=== PATIENT | male | born 2000 | race Caucasian/White ===

== ENCOUNTER 2023-09-09 13:20 | Emergency (ER) | payer MEDICAID | END 2023-09-09 14:11 | disposition left against medical advice (07) | LOC: ED 13:20 | DX: Z53.21 Procedure and treatment not carried out due to patient leaving prior to being seen by health care provider (principal) ==

== ENCOUNTER 2023-09-09 18:17 | Emergency (ER) | payer MEDICAID ==
--- NOTE | 2023-09-09 18:46 | ED Physician Documentation ---
PD HPI MHE - Stated complaint Stated Complaint: SI - Chief complaint Chief Complaint: MHE - History obtained from History obtained from: Patient - Additional information Additional information: This is a 23-year-old male who presents after suicidal ideation. The patient has a longstanding history of depression, anxiety prior suicide attempts. He has been in inpatient mental health treatment on several occasions in the past. He presents today after encouragement from his director community health nursing at [facility]. The patient apparently was about to drink bleach in an effort to kill himself but he did not actually drink any bleach. He states he did want to kill himself and he has had thoughts of suicide quite frequently recently. It sounds as though he is being bullied or feels he has been made fun of by some other members of the [facility] in which she stays. The patient states he smokes marijuana occasionally, no other drug use, no alcohol use. He is not currently on any mental health medication though has been on various different medications in the past and has been out for at least a month. He denies any other concerns today, no fever or chills, no cough or URI symptoms, no GI or symptoms. He is accompanied by a director community health nursing today. Review of Systems Constitutional: reports: Reviewed and negative Eyes: reports: Reviewed and negative Ears: reports: Reviewed and negative Nose: reports: Reviewed and negative Throat: reports: Reviewed and negative Cardiac: reports: Reviewed and negative Respiratory: reports: Reviewed and negative GI: reports: Reviewed and negative : reports: Reviewed and negative Skin: reports: Reviewed and negative Musculoskeletal: reports: Reviewed and negative Neurologic: reports: Reviewed and negative Psychiatric: reports: Depressed, Suicidal, Anxiety. denies: Homicidal, Hallucinations, Delusions Endocrine: reports: Reviewed and negative PD PAST MEDICAL HISTORY - Past Medical History Past Medical History: Yes Cardiovascular: Other Respiratory: None Neuro: None Endocrine/Autoimmune: None GI: None : None HEENT: None Psych: Depression, Anxiety, Other Derm: None - Past Surgical History Past Surgical History: No - Present Medications Home Medications: Ambulatory Orders Medication Instructions Recorded Confirmed Benztropine Mesylate 1 mg PO DAILY 06/01/23 06/03/23 Quetiapine Fumarate [Seroquel] 50 mg PO DAILY 06/01/23 06/03/23 clonazePAM [Klonopin] 2 mg PO DAILY 06/01/23 06/03/23 haloperidoL [Haloperidol] 5 mg PO DAILY 06/01/23 06/03/23 - Allergies Allergies/Adverse Reactions: Allergies Allergy/AdvReac Type Severity Reaction Status Date / Time No Known Drug Allergies Allergy Verified 09/09/23 18:22 - Social History Does the pt smoke?: No Smoking Status: Former smoker Does the pt drink ETOH?: Yes Does the pt have substance abuse?: Yes Substance Use and Type: Marijuana - Immunizations Immunizations are current?: Yes PD ED PE NORMAL - Vitals Vital signs reviewed: Yes - General General: Alert and oriented X 3, No acute distress, Well developed/nourished - HEENT HEENT: Atraumatic, Moist mucous membranes - Cardiac Cardiac: RRR, No murmur - Respiratory Respiratory: No respiratory distress, Clear bilaterally - Abdomen Abdomen: Normal bowel sounds, Soft, Non tender, Non distended - Derm Derm: Normal color, Warm and dry, No rash, Other - Extremities Extremities: No deformity, No tenderness to palpate, Normal ROM s pain, No edema, No calf tenderness / cord - Neuro Neuro: Alert and oriented X 3 Eye Opening: Spontaneous Motor: Obeys Commands Verbal: Oriented GCS Score: 15 - Psych Psych: Normal mood, Normal affect Results - Vitals Vitals: Vital Signs - 24 hr 09/09/23 18:23 Temperature 36.3 C L Heart Rate 74 Respiratory 16 Rate Blood Pressure 139/87 H O2 Saturation 99 Oxygen O2 Source Room air - Labs Labs: Laboratory Tests 09/09/23 09/09/23 18:40 18:50 WBC 9.7 RBC 5.52 Hgb 16.1 Hct 46.3 MCV 83.9 MCH 29.2 MCHC 34.8 RDW 12.0 Plt Count 294 MPV 9.3 Neut # (Auto) 6.7 H Lymph # (Auto) 2.4 [place] # (Auto) 0.5 Eos # (Auto) 0.2 Baso # (Auto) 0.0 Absolute Nucleated RBC 0.00 Nucleated RBC % 0.0 Urine Color YELLOW Urine Clarity CLEAR Urine pH 5.5 Ur Specific [place] >=1.030 H Urine Protein NEGATIVE Urine Glucose (UA) NEGATIVE Urine Ketones NEGATIVE Urine Occult Blood NEGATIVE Urine Nitrite NEGATIVE Urine Bilirubin NEGATIVE Urine Urobilinogen 0.2 (NORMAL) Ur Leukocyte Esterase NEGATIVE Ur Microscopic Review NOT INDICATED Urine Culture Comments NOT INDICATED Urine Opiates Screen NEGATIVE Ur Buprenorphine Scrn NEGATIVE Ur Oxycodone Screen NEGATIVE Urine Methadone Screen NEGATIVE Ur Barbiturates Screen NEGATIVE Ur Tricyclics Screen NEGATIVE Ur Phencyclidine Scrn NEGATIVE Ur Amphetamine Screen NEGATIVE U Methamphetamines Scrn NEGATIVE U Benzodiazepines Scrn NEGATIVE Urine Cocaine Screen NEGATIVE U Cannabinoids Screen POSITIVE H Ur Drug Screen Comment CUTOFF CONC BELOW: PD Medical Decision Making - ED course Complexity details: reviewed old records, reviewed results, re-evaluated patient, considered differential, d/w patient ED course: 23-year-old male presents with suicidal ideation as described in HPI. The patient has a history of the same. Here, he is stable, in no acute distress, vital signs are stable, his physical exam is reassuring, he is pleasant and cooperative. He thought about drinking bleach earlier but did not actually drink any bleach this assuming his labs are stable he will be medically cleared. He does desire voluntary mental health placement therefore I will consult the telepsych service to evaluate the patient for possible placement. Patient states understanding of plan and is resting quietly in the ER. Departure - Departure Forms: PCP List
[2023-09-09 18:50] LABS: BILIRUBIN,URINE NEGATIVE (NEGATIVE); GLUCOSE, URINE (UA) NEGATIVE (NEGATIVE); KETONES,URINE (UA) NEGATIVE (NEGATIVE); LEUKOCYTE ESTERASE, URINE NEGATIVE (NEGATIVE); NITRITE,URINE NEGATIVE (NEGATIVE); OCCULT BLOOD,URINE NEGATIVE (NEGATIVE); PH,URINE 5.5 PH (5.0-7.5); PROTEIN,URINE NEGATIVE (NEGATIVE); UROBILINOGEN,URINE 0.2 (NORMAL) E.U./dL (NORMAL)
[2023-09-09 18:52] LABS: CLARITY,URINE CLEAR (CLEAR)
[2023-09-09 18:55] LABS: BASOPHILS % (AUTO) 0.4 %; EOSINOPHILS # (AUTO) 0.2 10^3/uL (0.0-0.7); EOSINOPHILS % (AUTO) 1.6 %; HCT - HEMATOCRIT 46.3 % (42.0-52.0); HGB - HEMOGLOBIN 16.1 g/dL (14.0-18.0); LYMPHOCYTES # (AUTO) 2.4 10^3/uL (1.5-3.5); LYMPHOCYTES % (AUTO) 24.4 %; MEAN CORPUSCULAR HEMOGLOBIN 29.2 pg (27.0-31.0); MEAN CORPUSCULAR HGB CONC 34.8 g/dL (32.0-36.0); MEAN CORPUSCULAR VOLUME 83.9 fL (80.0-94.0); MEAN PLATELET VOLUME 9.3 fL (7.4-11.4); MONOCYTES # (AUTO) 0.5 10^3/uL (0.0-1.0); MONOCYTES % (AUTO) 4.6 %; NEUTROPHILS # (AUTO) 6.7 10^3/uL (1.5-6.6); NEUTROPHILS % (AUTO) 68.7 %; PLT - PLATELET COUNT 294 10^3/uL (130-450); RED BLOOD COUNT 5.52 10^6/uL (4.70-6.10); WHITE BLOOD COUNT 9.7 x10^3/uL (4.8-10.8)
[2023-09-09 19:00] LABS: AMPHETAMINE SCREEN,URINE NEGATIVE (NEGATIVE); BARBITURATE SCREEN,UR NEGATIVE (NEGATIVE); BENZODIAZEPINES SCREEN, URINE NEGATIVE (NEGATIVE); BUPRENORPHINE SCREEN, URINE NEGATIVE (NEGATIVE); COCAINE SCREEN URINE NEGATIVE (NEGATIVE); METHADONE SCREEN, URINE NEGATIVE (NEGATIVE); METHAMPHETAMINES SCREEN, URINE NEGATIVE (NEGATIVE); OPIATE SCREEN, URINE NEGATIVE (NEGATIVE); OXYCODONE SCREEN, URINE NEGATIVE (NEGATIVE); THC CANNABINOID SCREEN, URINE POSITIVE (NEGATIVE); TRICYCLIC ANTIDEPRESSANT,URINE NEGATIVE (NEGATIVE)
[2023-09-09 19:13] LABS: ACETAMINOPHEN 0.2 ug/mL; ALBUMIN 4.9 g/dL (3.2-5.5); ALKALINE PHOSPHATASE 52 IU/L (42-121); ALT ALANINE AMINOTRANSFERASE 13 IU/L (10-60); AST ASPARTATE AMINOTRANSFERASE 17 IU/L (10-42); BILIRUBIN,TOTAL 0.5 mg/dL (0.2-1.0); BUN - BLOOD UREA NITROGEN 12 mg/dL (6-20); CALCIUM 9.6 mg/dL (8.5-10.3); CARBON DIOXIDE - CO2 27 mmol/L (21-32); CHLORIDE 103 mmol/L (101-111); CREATININE 0.9 mg/dL (0.6-1.3); ETOH - ETHANOL < 10.0 mg/dL; GFR - MDRD 104 (>89); GLUCOSE 109 mg/dL (74-104); LIPASE 19 U/L (11-82); POTASSIUM 3.8 mmol/L (3.5-4.5); SALICYLATE < 1.5 mg/dL; SODIUM 138 mmol/L (135-145); TOTAL PROTEIN 7.3 g/dL (6.4-8.9)
[2023-09-09 19:23] LABS: THYROID STIMULATING HORMONE 1.66 uIU/mL (0.34-5.60)
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
[2023-09-09] MEDS ORDERED: QUEtiapine 100 MG TABLET PO STA (21:27)
[2023-09-09 22:55] LABS: B. PARAPERTUSSIS- RESP PCR PAN NOT DETECTED; B. PERTUSSIS- RESP PCR PANEL NOT DETECTED; C. PNEUMONIAE- RESP PCR PANEL NOT DETECTED; CORONAVIRUS 229E-RESP PCR NOT DETECTED; CORONAVIRUS HKU1-RESP PCR NOT DETECTED; CORONAVIRUS NL63-RESP PCR NOT DETECTED; CORONAVIRUS OC43-RESP PCR NOT DETECTED; HUMAN METAPNEUMOVIRUS NOT DETECTED; INFLUENZA A- RESP PCR PANEL NOT DETECTED; INFLUENZA B - RESP PCR PANEL NOT DETECTED; M. PNEUMONIAE- RESP PCR PANEL NOT DETECTED; PARAINFLUENZA VIRUS 1 NOT DETECTED; PARAINFLUENZA VIRUS 2 NOT DETECTED; PARAINFLUENZA VIRUS 3 NOT DETECTED; PARAINFLUENZA VIRUS 4 NOT DETECTED; RHINOVIRUS/ENTEROVIRUS NOT DETECTED; RSV- RESP PCR PANEL NOT DETECTED; SARS-CoV-2 -RESP PCR PANEL NOT DETECTED
[2023-09-10 07:10] VITALS: BP 106/62; O2SAT 100
--- NOTE | 2023-09-10 07:28 | ED Physician Documentation ---
ED Addendum - Addendum Addendum: 09/10/23 07:27 The patient was signed out to me at change of shift, pending final disposition after presenting to the emergency department suicidal ideation. The patient has a longstanding history of depression and suicidal thoughts and has had attempts in the past. He had been evaluated by telepsych, who is looking for placement for him. I did receive word that [facility] had excepted the patient, but that they would not be able to take him till around 11:00 this morning. The patient is voluntary and agreeable to the plan of transfer for inpatient treatment. He has had no complaints overnight and has been calm and cooperative. Final impression 1. Major depression 2. Suicidal ideation Disposition: Transfer to inpatient psychiatric facility in serious but stable condition.
== END 2023-09-10 10:40 ==
LOC: ED 18:17
DX: R45.851 Suicidal ideations (principal); F33.2 Major depressive disorder, recurrent severe without psychotic features; F20.9 Schizophrenia, unspecified; Z59.00 Homelessness unspecified; Z87.891 Personal history of nicotine dependence; Z91.51 Personal history of suicidal behavior; Z79.899 Other long term (current) drug therapy
CPT/HCPCS: 36415; 80053; 80306; 80307; 80320; 80329; 81003; 83690; 84443; 85025; 87633; 99284; 99285; A9270; G0425; Q3014; 81001; 87086

== ENCOUNTER 2023-10-25 00:04 | Outpatient (CLI) | payer MEDICAID | END 2023-10-25 00:05 | disposition critical access hospital (66) | LOC: EMS 00:04 | DX: R46.89 Other symptoms and signs involving appearance and behavior (principal); F41.9 Anxiety disorder, unspecified | CPT/HCPCS: A0425; A0429; A0999 ==

== ENCOUNTER 2023-10-25 00:10 | Emergency (ER) | payer MEDICAID ==
--- NOTE | 2023-10-25 00:23 | ED Physician Documentation ---
History of Present Illness - Stated complaint Stated Complaint: AMS - History obtained from History obtained from: Patient, EMS - Additonal information Additional information: 23yM with pmh schizophrenia and multiple personality disorder p/w agitation tonight, prompting [facility] staff to call 911. patient and ems state he was flailing at his head with his arms. ems states he "trashed his room". patient states he was feeling very anxious at the time but feels better now. recent hospitalization for his mental health last month at [facility] for 2 weeks. patient requesting to go home tonight. denies si/hi/avh at present. he is requ esting anxiolysis PD PAST MEDICAL HISTORY - Past Medical History Cardiovascular: Other Respiratory: None Neuro: None Endocrine/Autoimmune: None GI: None : None HEENT: None Psych: Depression, Anxiety, Other Derm: None - Past Surgical History Past Surgical History: No - Present Medications Home Medications: Ambulatory Orders Medication Instructions Recorded Confirmed Alprazolam [Xanax] 0.25 mg PO Q6H PRN #20 tablet 10/25/23 Benztropine [Cogentin] 1 mg PO BID 10/25/23 10/25/23 Buspirone HCl 15 mg PO BID 10/25/23 10/25/23 Quetiapine Fumarate [Seroquel] 300 mg PO BID 10/25/23 10/25/23 traZODone [Desyrel] 50 - 100 mg PO HS PRN 10/25/23 10/25/23 - Allergies Allergies/Adverse Reactions: Allergies Allergy/AdvReac Type Severity Reaction Status Date / Time No Known Drug Allergies Allergy Verified 10/25/23 00:20 - Social History Does the pt smoke?: No Smoking Status: Former smoker Does the pt drink ETOH?: Yes Does the pt have substance abuse?: Yes - Immunizations Immunizations are current?: Yes PD ED PE NORMAL - Vitals Vital signs reviewed: Yes - General General: Alert and oriented X 3, No acute distress, Well developed/nourished - HEENT HEENT: Atraumatic, PERRL, EOMI, Moist mucous membranes, Pharynx benign - Neck Neck: Supple, no meningeal sign - Cardiac Cardiac: RRR - Respiratory Respiratory: No respiratory distress, Clear bilaterally - Derm Derm: Normal color, Warm and dry - Psych Psych: Other (denies SI/HI/AVH) Results - Vitals Vitals: Vital Signs - 24 hr 10/25/23 00:20 Temperature 36.4 C L Heart Rate 92 Respiratory 16 Rate Blood Pressure 137/83 H O2 Saturation 92 Oxygen O2 Source Room air - Labs Labs: Laboratory Tests 10/25/23 00:32 WBC 9.6 RBC 5.28 Hgb 15.1 Hct 45.7 MCV 86.6 MCH 28.6 MCHC 33.0 RDW 11.5 L Plt Count 258 MPV 9.0 Neut # (Auto) 5.8 Lymph # (Auto) 2.8 [place] # (Auto) 0.6 Eos # (Auto) 0.3 Baso # (Auto) 0.1 Absolute Nucleated RBC 0.00 Nucleated RBC % 0.0 PD Medical Decision Making - ED course ED course: 23yM with pmh schizophrenia and multiple personality disorder p/w agitation and anxiety tonight at [facility], without SI/HI/AVH. patient is compliant with his home meds (benztropine, trazodone, buspirone, quetiapine) and has upcoming [facility] appointment. requested additional anxiolysis. xanax provided to good effect. Collateral history from [facility] staff member : patient became agitated while alone in his room tonight. He did not get his PRN evening trazodone tonight but staff member notes patient has been requesting it and having trouble at nighttime before bed on occasion. He was tearing at his room and intermittently saying the voices were telling him to kill himself. when asked about this, patient states the voices have subsided and he has no active plan. feeling better s/p xanax. In my assessment patient does not pose immediate threat to self or others at this time. He has good insight and is agreeable to close outpatient f/u. staff member will help make sure his meds get filled and are taken regularly. contracted for safety. mental health screening labs look benign. d/w [facility] staff who will provide support to the patient. plan to have him follow up outpatient with [facility]. pcp list provided. return precautions given. Departure - Departure Clinical Impression: Schizophrenia, Anxiety Condition: Stable Instructions: ED Schizophrenia General Prescriptions: Alprazolam [Xanax] 0.25 mg PO Q6H PRN #20 tablet PRN Reason: Anxiety Comments: You were seen in the emergency department for agitation and anxiety. Electronic prescription for xanax sent to [facility]. Please follow-up with a primary care provider (referral list provided) as well as [facility] mental health counseling and return to the emergency department if you have any new or worsening symptoms or other concerns.
[2023-10-25 00:37] LABS: BASOPHILS # (AUTO) 0.1 10^3/uL (0.0-0.1); BASOPHILS % (AUTO) 0.5 %; EOSINOPHILS # (AUTO) 0.3 10^3/uL (0.0-0.7); EOSINOPHILS % (AUTO) 3.4 %; HCT - HEMATOCRIT 45.7 % (42.0-52.0); HGB - HEMOGLOBIN 15.1 g/dL (14.0-18.0); LYMPHOCYTES # (AUTO) 2.8 10^3/uL (1.5-3.5); LYMPHOCYTES % (AUTO) 29.7 %; MEAN CORPUSCULAR HEMOGLOBIN 28.6 pg (27.0-31.0); MEAN CORPUSCULAR VOLUME 86.6 fL (80.0-94.0); MONOCYTES # (AUTO) 0.6 10^3/uL (0.0-1.0); MONOCYTES % (AUTO) 5.7 %; NEUTROPHILS # (AUTO) 5.8 10^3/uL (1.5-6.6); NEUTROPHILS % (AUTO) 60.5 %; PLT - PLATELET COUNT 258 10^3/uL (130-450); RED BLOOD COUNT 5.28 10^6/uL (4.70-6.10); RED CELL DISTRIBUTION WIDTH 11.5 % (12.0-15.0); WHITE BLOOD COUNT 9.6 x10^3/uL (4.8-10.8)
[2023-10-25] MEDS: ALPRAZolam 0.25 MG TABLET PO STA (00:38)
[2023-10-25 01:06] LABS: THYROID STIMULATING HORMONE 1.88 uIU/mL (0.34-5.60)
[2023-10-25 01:22] LABS: BILIRUBIN,URINE NEGATIVE (NEGATIVE); GLUCOSE, URINE (UA) NEGATIVE (NEGATIVE); KETONES,URINE (UA) NEGATIVE (NEGATIVE); LEUKOCYTE ESTERASE, URINE NEGATIVE (NEGATIVE); NITRITE,URINE NEGATIVE (NEGATIVE); OCCULT BLOOD,URINE NEGATIVE (NEGATIVE); PROTEIN,URINE NEGATIVE (NEGATIVE); UROBILINOGEN,URINE 0.2 (NORMAL) E.U./dL (NORMAL)
[2023-10-25 01:26] LABS: CLARITY,URINE CLEAR (CLEAR)
[2023-10-25 01:36] LABS: GFR - MDRD 92 (>89)
[2023-10-25 01:37] LABS: ALBUMIN/GLOBULIN RATIO 1.9 (1.0-2.2); BUN - BLOOD UREA NITROGEN 10 mg/dL (6-20); CARBON DIOXIDE - CO2 25 mmol/L (21-32); CHLORIDE 106 mmol/L (101-111); GLUCOSE 111 mg/dL (74-104); POTASSIUM 3.7 mmol/L (3.5-4.5); SODIUM 141 mmol/L (135-145)
[2023-10-25 01:38] LABS: ALBUMIN 4.4 g/dL (3.2-5.5); ALKALINE PHOSPHATASE 66 IU/L (42-121); ALT ALANINE AMINOTRANSFERASE 15 IU/L (10-60); AST ASPARTATE AMINOTRANSFERASE 14 IU/L (10-42); BILIRUBIN,TOTAL 0.3 mg/dL (0.2-1.0); CALCIUM 9.5 mg/dL (8.5-10.3); CK- CREATINE KINASE 114 IU/L (30-223); ETOH - ETHANOL < 10.0 mg/dL; LIPASE 18 U/L (11-82); MAGNESIUM 1.7 mg/dL (1.7-2.3); SALICYLATE < 1.5 mg/dL; TOTAL PROTEIN 6.7 g/dL (6.4-8.9)
[2023-10-25 01:39] LABS: AMPHETAMINE SCREEN,URINE NEGATIVE (NEGATIVE); BARBITURATE SCREEN,UR NEGATIVE (NEGATIVE); BENZODIAZEPINES SCREEN, URINE NEGATIVE (NEGATIVE); BUPRENORPHINE SCREEN, URINE NEGATIVE (NEGATIVE); COCAINE SCREEN URINE NEGATIVE (NEGATIVE); METHADONE SCREEN, URINE NEGATIVE (NEGATIVE); METHAMPHETAMINES SCREEN, URINE NEGATIVE (NEGATIVE); OPIATE SCREEN, URINE NEGATIVE (NEGATIVE); OXYCODONE SCREEN, URINE NEGATIVE (NEGATIVE); THC CANNABINOID SCREEN, URINE POSITIVE (NEGATIVE); TRICYCLIC ANTIDEPRESSANT,URINE POSITIVE (NEGATIVE)
[2023-10-25] MEDS: traZODone 50 MG TABLET PO STA (01:44)
[2023-10-25 01:59] VITALS: BP 127/84; O2SAT 99
[2023-10-25 02:24] LABS: ACETAMINOPHEN 0.1 ug/mL
== END 2023-10-25 01:52 | disposition home or self-care (01) ==
LOC: EDUNIT# → ED 00:10
DX: F20.9 Schizophrenia, unspecified (principal); F41.9 Anxiety disorder, unspecified; Z87.891 Personal history of nicotine dependence
CPT/HCPCS: 36415; 80053; 80143; 80179; 80306; 81003; 82077; 82550; 83690; 83735; 84443; 85025; 99283; 99284; A9270; 81001; 87086

== ENCOUNTER 2023-11-28 12:23 | Outpatient (CLI) | payer MEDICAID ==
[2023-11-28 22:34] LABS: CHLAMYDIA TRACHOMATIS DNA NEGATIVE (NEGATIVE); NEISSERIA GONORRHOEAE DNA NEGATIVE (NEGATIVE); TRICHOMONAS VAGINALIS DNA NEGATIVE (NEGATIVE)
[2023-11-29 05:13] LABS: HCV AB Non Reactive (Non Reactive)
[2023-11-29 08:11] LABS: HIV SCREEN 4TH GENERATION Non Reactive (Non Reactive); HSV 1 IGG TYPE SPEC <0.91 index (0.00-0.90); HSV 2 IGG TYPE SPEC <0.91 index (0.00-0.90); RPR Non Reactive (Non Reactive)
== END 2023-11-28 12:24 | disposition home or self-care (01) ==
LOC: LAB.N 12:23
PROVIDERS: ATTEND Physician Assistant
DX: Z20.2 Contact with and (suspected) exposure to infections with a predominantly sexual mode of transmission (principal)
CPT/HCPCS: 36415; 86592; 86695; 86696; 86803; 87389; 87491; 87591; 87661

== ENCOUNTER 2024-02-04 11:31 | Outpatient (CLI) | payer MEDICAID | END 2024-02-04 23:38 | disposition critical access hospital (66) | LOC: EMS 11:31 | DX: Z04.6 Encounter for general psychiatric examination, requested by authority (principal); S00.12XA Contusion of left eyelid and periocular area, initial encounter; S00.11XA Contusion of right eyelid and periocular area, initial encounter; X83.8XXA Intentional self-harm by other specified means, initial encounter; R45.1 Restlessness and agitation; Z78.1 Physical restraint status | CPT/HCPCS: A0425; A0429; A0999 ==

== ENCOUNTER 2024-02-04 11:53 | Emergency (ER) | payer MEDICAID ==
--- NOTE | 2024-02-04 11:56 | ED Physician Documentation ---
PD HPI MHE - Stated complaint Stated Complaint: MHE - Additional information Additional information: 23-year-old male with history of multiple personality disorder presents emergency department via police/DCR as patient was seen beating himself up. Patient reports that every 1 to 2 months he says that something new will take over his body and start beating him up and his voice will start changing. Patient says he is also hearing voices not seeing anything. He said no recent medication changes denies any drug or alcohol use. Patient's girlfriend is at bedside she says that they were at [facility] she was in the office applying for benefits and started hearing something went outside to go check on him and he started throwing things at her and was beating himself up punching himself repeatedly.. Patient has bilateral eye swelling with bruising throughout entire face. Patient says " I beat myself up because of just a piece of shit" When asked the patient if he is having any suicidal homicidal ideation he says no when asked me if suddenly thoughts of wanting to hurt himself he says no but I want avoid that subject right now. PD PAST MEDICAL HISTORY - Past Medical History Cardiovascular: Other Respiratory: None Neuro: None Endocrine/Autoimmune: None GI: None : None HEENT: None Psych: Depression, Anxiety, Other Derm: None - Past Surgical History Past Surgical History: No - Present Medications Home Medications: Ambulatory Orders Medication Instructions Recorded Confirmed Alprazolam [Xanax] 0.25 mg PO Q6H PRN #20 tablet 10/25/23 Benztropine [Cogentin] 1 mg PO BID 10/25/23 10/25/23 Buspirone HCl 15 mg PO BID 10/25/23 10/25/23 Quetiapine Fumarate [Seroquel] 300 mg PO BID 10/25/23 10/25/23 traZODone [Desyrel] 50 - 100 mg PO HS PRN 10/25/23 10/25/23 - Allergies Allergies/Adverse Reactions: Allergies Allergy/AdvReac Type Severity Reaction Status Date / Time No Known Drug Allergies Allergy Verified 02/04/24 12:09 - Social History Does the pt smoke?: No Smoking Status: Former smoker Does the pt drink ETOH?: Yes Does the pt have substance abuse?: Yes - Immunizations Immunizations are current?: Yes PD ED PE NORMAL - Vitals Vital signs reviewed: Yes - General General: Alert and oriented X 3, Well developed/nourished - HEENT HEENT: PERRL, Other (Bruising and swelling to patient's entire face) - Neck Neck: No bony TTP, C-Spine cleared by NEXUS criteria - Cardiac Cardiac: RRR, No murmur - Respiratory Respiratory: No respiratory distress, Clear bilaterally - Abdomen Abdomen: Normal bowel sounds, Soft, Non tender - Neuro Neuro: Alert and oriented X 3, 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 No: Suicidal, Homicidal, Visual hallucinations, Tactile hallucinations Results - Vitals Vitals: Vital Signs - 24 hr 02/04/24 02/04/24 02/04/24 11:56 18:41 19:11 Temperature 36.4 C L 36.6 C Heart Rate 99 83 71 Respiratory 18 16 15 Rate Blood Pressure 146/92 H 152/96 H O2 Saturation 98 94 99 02/04/24 02/04/24 20:06 21:04 Temperature 36.6 C Heart Rate 91 91 Respiratory 17 17 Rate Blood Pressure 121/77 121/77 O2 Saturation 100 100 Oxygen O2 Source Room air - Labs Labs: Laboratory Tests 02/04/24 02/04/24 02/04/24 12:25 12:25 12:50 WBC 9.9 RBC 5.46 Hgb 15.6 Hct 46.9 MCV 85.9 MCH 28.6 MCHC 33.3 RDW 12.4 Plt Count 249 MPV 9.3 Neut # (Auto) 8.1 H Lymph # (Auto) 1.2 L Centre # (Auto) 0.4 Eos # (Auto) 0.2 Baso # (Auto) 0.0 Absolute Nucleated RBC 0.00 Nucleated RBC % 0.0 Sodium 140 Potassium 3.7 Chloride 105 Carbon Dioxide 30 Anion Gap 5.0 L BUN 9 Creatinine 1.1 Estimated GFR (MDRD) 82 L Glucose 96 Calcium 9.6 Magnesium 1.9 Total Bilirubin 0.6 AST 20 ALT 18 Alkaline Phosphatase 58 Total Creatine Kinase 177 Total Protein 7.0 Albumin 4.6 Globulin 2.4 Albumin/Globulin Ratio 1.9 Lipase < 10 L TSH 0.72 Urine Color YELLOW Urine Clarity CLEAR Urine pH 6.5 Ur Specific [place] 1.015 Urine Protein NEGATIVE Urine Glucose (UA) NEGATIVE Urine Ketones NEGATIVE Urine Occult Blood NEGATIVE Urine Nitrite NEGATIVE Urine Bilirubin NEGATIVE Urine Urobilinogen 0.2 (NORMAL) Ur Leukocyte Esterase NEGATIVE Ur Microscopic Review NOT INDICATED Urine Culture Comments NOT INDICATED Salicylates < 1.5 Urine Opiates Screen NEGATIVE Ur Buprenorphine Scrn NEGATIVE Ur Oxycodone Screen NEGATIVE Urine Methadone Screen NEGATIVE Acetaminophen 0.3 Ur Barbiturates Screen NEGATIVE Ur Tricyclics Screen POSITIVE H Ur Phencyclidine Scrn NEGATIVE Ur Amphetamine Screen NEGATIVE U Methamphetamines Scrn NEGATIVE U Benzodiazepines Scrn NEGATIVE Urine Cocaine Screen NEGATIVE U Cannabinoids Screen POSITIVE H Ur Drug Screen Comment CUTOFF CONC BELOW: Ethyl Alcohol < 10.0 - Rads (name of study) CT head without con Relevant Findings:: Final report received, EMP independent interpretation of test, Other (No acute intracranial pathology or findings) PD Medical Decision Making - ED course ED course: 23-year-old male presents emergency department as he was repeatedly punching himself. Labs have been complete for further evaluation no leukocytosis no anemia no obvious signs of infection no electrolyte abnormalities normal TSH urinalysis is also found to be unremarkable urine drug screen positive for tricyclics and cannabinoids. PatientFor the most part in the beginning of patient's ER visit was calm cooperative and directable. He declines any need for hospitalization for his psychiatric paranoia and concerns. He eventually became quite hostile and agitated saying that he wanted to leave but unfortunately he started to hit himself and was posturing at staff became quite aggressive and hostile we tried to offer him the medications he declined he then was agreeable to take some p.o. olanzapine but even after the olanzapine he started to become more hostile and aggressive with himself. We attempted multiple times to redirect patient to try to calm him down and explained to him that he needed to be evaluated by telepsych for further evaluation given the fact that he has been injuring himself patient was not directable became more angry and hostile ultimately leading to a multitude of staff responding to the patient yelling out and unfortunately deputy sheriff custody's need to be called for further assistance. We ended up having to place patient in for point off restraint for until he could be evaluated by DCR due to concerns of hurting himself and others how he was acting. He also needed additional 5 mg of Haldol and 2 mg of Ativan intramuscular after patient repletion for point restraints as he was trying to slip out of his restraints and did manage to sleep out of one of his restraints and became more angry and aggressive with himself trying to continuously hit himself in the face. I did appear the patient at 1 point in time was responding to internal stimuli. DCR eventually came out to evaluate the patient who is much more calm and cooperative at that point in time he is at his been hospitalized multiple times for these manic states that he said that its never been helpful never worked he recently increase his Zyprexa to 0.5 mg he does not want to be admitted to the hospital patient went out to [facility] to speak with his girlfriend and additional people who live in the house and they all felt safe with him coming home as they know this is normal for him but he tends to have these outbursts that last for a brief period of time after counseling and then he resumes to his normal baseline. PCR did not find that patient was detainable and felt comfortable with discharging patient to [facility]. Patient is agreeable did not harm himself or others going home he will follow-up with his psychiatrist as needed and is aware to call 911 if he starts to feel like he is hearing voices again or starting to feel like he is starting to respond to internal stimuli again. Departure - Departure Disposition: 01 Home, Self Care Clinical Impression: Mental health disorder Instructions: ED Stress React Comments: You have been evaluated by DCR there is no medication changes that are warranted at this point in time please make sure that you call [phone] if you are starting to develop any concerning symptoms of wanting to harm yourself or others please call 911 for any other emergent concerning symptoms. Please follow-up with your psychiatrist as needed. Forms: PCP List Discharge Date/Time: 02/04/24 21:05
[2024-02-04] MEDS: IBUPROFEN 600 MG TABLET PO STA (12:15)
[2024-02-04] MEDS: ALPRAZolam 0.25 MG TABLET PO STA ×2 (12:31→12:34)
[2024-02-04 12:34] LABS: BASOPHILS % (AUTO) 0.3 %; EOSINOPHILS # (AUTO) 0.2 10^3/uL (0.0-0.7); EOSINOPHILS % (AUTO) 1.5 %; HCT - HEMATOCRIT 46.9 % (42.0-52.0); HGB - HEMOGLOBIN 15.6 g/dL (14.0-18.0); LYMPHOCYTES # (AUTO) 1.2 10^3/uL (1.5-3.5); LYMPHOCYTES % (AUTO) 12.1 %; MEAN CORPUSCULAR HEMOGLOBIN 28.6 pg (27.0-31.0); MEAN CORPUSCULAR HGB CONC 33.3 g/dL (32.0-36.0); MEAN CORPUSCULAR VOLUME 85.9 fL (80.0-94.0); MEAN PLATELET VOLUME 9.3 fL (7.4-11.4); MONOCYTES # (AUTO) 0.4 10^3/uL (0.0-1.0); NEUTROPHILS # (AUTO) 8.1 10^3/uL (1.5-6.6); NEUTROPHILS % (AUTO) 81.7 %; PLT - PLATELET COUNT 249 10^3/uL (130-450); RED BLOOD COUNT 5.46 10^6/uL (4.70-6.10); RED CELL DISTRIBUTION WIDTH 12.4 % (12.0-15.0); WHITE BLOOD COUNT 9.9 x10^3/uL (4.8-10.8)
[2024-02-04 12:48] LABS: ACETAMINOPHEN 0.3 ug/mL; ALBUMIN 4.6 g/dL (3.2-5.5); ALBUMIN/GLOBULIN RATIO 1.9 (1.0-2.2); ALKALINE PHOSPHATASE 58 IU/L (42-121); ALT ALANINE AMINOTRANSFERASE 18 IU/L (10-60); AST ASPARTATE AMINOTRANSFERASE 20 IU/L (10-42); BILIRUBIN,TOTAL 0.6 mg/dL (0.2-1.0); BUN - BLOOD UREA NITROGEN 9 mg/dL (6-20); CALCIUM 9.6 mg/dL (8.5-10.3); CARBON DIOXIDE - CO2 30 mmol/L (21-32); CHLORIDE 105 mmol/L (101-111); CK- CREATINE KINASE 177 IU/L (30-223); CREATININE 1.1 mg/dL (0.6-1.3); ETOH - ETHANOL < 10.0 mg/dL; GFR - MDRD 82 (>89); GLUCOSE 96 mg/dL (74-104); LIPASE < 10 U/L (11-82); MAGNESIUM 1.9 mg/dL (1.7-2.3); POTASSIUM 3.7 mmol/L (3.5-4.5); SALICYLATE < 1.5 mg/dL; SODIUM 140 mmol/L (135-145)
[2024-02-04 12:59] LABS: BILIRUBIN,URINE NEGATIVE (NEGATIVE); GLUCOSE, URINE (UA) NEGATIVE (NEGATIVE); KETONES,URINE (UA) NEGATIVE (NEGATIVE); LEUKOCYTE ESTERASE, URINE NEGATIVE (NEGATIVE); NITRITE,URINE NEGATIVE (NEGATIVE); OCCULT BLOOD,URINE NEGATIVE (NEGATIVE); PH,URINE 6.5 PH (5.0-7.5); PROTEIN,URINE NEGATIVE (NEGATIVE); UROBILINOGEN,URINE 0.2 (NORMAL) E.U./dL (NORMAL)
[2024-02-04 13:00] LABS: THYROID STIMULATING HORMONE 0.72 uIU/mL (0.34-5.60)
[2024-02-04 13:01] LABS: CLARITY,URINE CLEAR (CLEAR)
[2024-02-04 13:10] LABS: AMPHETAMINE SCREEN,URINE NEGATIVE (NEGATIVE); BARBITURATE SCREEN,UR NEGATIVE (NEGATIVE); BENZODIAZEPINES SCREEN, URINE NEGATIVE (NEGATIVE); BUPRENORPHINE SCREEN, URINE NEGATIVE (NEGATIVE); COCAINE SCREEN URINE NEGATIVE (NEGATIVE); METHADONE SCREEN, URINE NEGATIVE (NEGATIVE); METHAMPHETAMINES SCREEN, URINE NEGATIVE (NEGATIVE); OPIATE SCREEN, URINE NEGATIVE (NEGATIVE); OXYCODONE SCREEN, URINE NEGATIVE (NEGATIVE); THC CANNABINOID SCREEN, URINE POSITIVE (NEGATIVE); TRICYCLIC ANTIDEPRESSANT,URINE POSITIVE (NEGATIVE)
--- NOTE | 2024-02-04 14:43 | CT Report ---
PROCEDURE: Head WO INDICATIONS: head injury TECHNIQUE: Noncontrast 4.5 mm thick angled axial sections acquired from the foramen magnum to the vertex. For r adiation dose reduction, the following was used: automated exposure control, adjustment of mA and/or kV according to patient size. COMPARISON: None. FINDINGS: Image quality: Excellent. CSF spaces: Basal cisterns are patent. No extra-axial fluid collections. Ventricles are normal in size and shape. Brain: No midline shift. No intracranial masses or hemorrhage. Laguerre-white matter interface is norm al. Skull and face: Calvarium and visualized facial bones are intact, without suspicious lesions. Sinuses: Visualized sinuses and mastoids are clear. IMPRESSION: No acute intracranial pathology. Reviewed by: Cristofer Garcia MD on 02/04/2024 2:42 PM PDT Approved by: Cristofer Garcia MD on 02/04/2024 2:42 PM PDT Station ID: [id number]
--- NOTE | 2024-02-04 16:36 | TELEPSYCH PHYS NOTE ---
[facility] Telepsych Consult Consult Date: 02/04/24 Name of Referring Provider:: ED provider Reason for Consult: psychiatric evaluation - Suicide Risk Sreening (ASQ Tool) Have you ever tried to kill yourself?: Yes - Assessment Language: Filipino Cultural, Presybeterian or Spiritual Preferences: None reported Notes: NA Chief Complaint: " History of Present Illness: 23 yo male presenting via law enforcement for psychiatric evaluation. Patient has a hx of mood, anxiety, psychotic and personality disorder. It was reported t hat the patient indicated that he was suffering from multiple personality disorder and that "something" took him over today causing him to engage in self- harm. Psychiatric History - Treatment History: Hx of mood, anxiety, psychotic, personality disorder. Patient has a hx of suicide attempts. Hx of psychiatric hospitalizations. - Medication & Allergies Home Medications: Ambulatory Orders Medication Instructions Recorded Confirmed Alprazolam [Xanax] 0.25 mg PO Q6H PRN #20 tablet 10/25/23 Benztropine [Cogentin] 1 mg PO BID 10/25/23 10/25/23 Buspirone HCl 15 mg PO BID 10/25/23 10/25/23 Quetiapine Fumarate [Seroquel] 300 mg PO BID 10/25/23 10/25/23 traZODone [Desyrel] 50 - 100 mg PO HS PRN 10/25/23 10/25/23 Allergies/Adverse Reactions: Allergies Allergy/AdvReac Type Severity Reaction Status Date / Time No Known Drug Allergies Allergy Verified 02/04/24 12:09 - Drug & Alcohol History Use: Uses substance without health or social issues: Cannabis - Medical History Psychiatric: reports: Depression, Anxiety, Other Neurological: reports: None Eyes, Ears, Nose, Throat: reports: None Cardiovascular: reports: Other Respiratory: reports: None Gastrointestinal: reports: None Urinary: reports: None Skin: reports: None
[2024-02-04] MEDS: OLANZapine ODT 5 MG TABLET TL ONE (16:42)
[2024-02-04] MEDS: HALOPERIDOL 5 MG/ML VIAL IM STA ×2 (17:11→17:39)
[2024-02-04] MEDS: LORazepam 2 MG/ML VIAL IM STA (17:28)
[2024-02-04] MEDS: HALOPERIDOL 5 MG/ML VIAL IVP STA (17:39)
--- NOTE | 2024-02-04 17:50 | ED Physician Documentation ---
Restraint [id number] - Immediate Situation Face to Face Evaluation Date: 02/04/24 Face to Face Evaluation Time: 17:15 Restraint Classification: Violent, physical - Patient's Reaction & Behaviors Safety: Physically safe, Non-compliant Verbal: Demanding, Screaming/Yelling, Swearing Harm: Actual harm to self, Actual harm to others, Verbalizes intent to harm Physical: Aggressive behavior, Fighting restraints Other: Attempting removal of medically necessary device(s) - Behavioral Condition Attitude: Guarded Behavior: Uncooperative, Belligerent, Agitated Orientation: Person, Place, Time, Situation Mood: Angry, Other (hostile, aggressive) - Evaluation Pertinent History/Illicit Drugs/Medications/Results: Patient with known schizophrenia
--- NOTE | 2024-02-04 18:44 | ED Physician Documentation ---
Restraint [id number] - Immediate Situation Face to Face Evaluation Date: 02/04/24 Face to Face Evaluation Time: 17:30 Restraint Classification: Violent, chemical - Patient's Reaction & Behaviors Safety: Physically unsafe, Non-compliant, Unable to Follow Commands Verbal: Demanding, Screaming/Yelling, Swearing Harm: Actual harm to self, Actual harm to others, Verbalizes intent to harm Physical: Aggressive behavior, Fighting restraints - Behavioral Condition Attitude: Guarded Behavior: Uncooperative, Belligerent, Agitated Orientation: Person, Place, Time, Situation Mood: Angry - Evaluation Pertinent History/Illicit Drugs/Medications/Results: Patient with known schizophrenia
--- NOTE | 2024-02-04 18:46 | ED Physician Documentation ---
Restraint [id number] - Immediate Situation Face to Face Evaluation Date: 02/04/24 Face to Face Evaluation Time: 17:12 Restraint Classification: Violent, chemical - Patient's Reaction & Behaviors Safety: Physically unsafe, Non-compliant, Unable to Follow Commands Verbal: Demanding, Screaming/Yelling, Swearing Harm: Actual harm to self, Actual harm to others Physical: Aggressive behavior, Fighting restraints - Behavioral Condition Attitude: Guarded Behavior: Uncooperative, Belligerent, Agitated Orientation: Person, Place, Time, Situation Mood: Angry, Anxious - Evaluation Pertinent History/Illicit Drugs/Medications/Results: Patient with known schizophrenia
[2024-02-04 20:25] VITALS: BP 121/77; O2SAT 100
== END 2024-02-04 21:05 | disposition home or self-care (01) ==
LOC: ED 11:53
DX: F20.9 Schizophrenia, unspecified (principal); F44.81 Dissociative identity disorder; S00.83XA Contusion of other part of head, initial encounter; X83.8XXA Intentional self-harm by other specified means, initial encounter; Z78.1 Physical restraint status; Z87.891 Personal history of nicotine dependence; Z91.199 Patient's noncompliance with other medical treatment and regimen due to unspecified reason
CPT/HCPCS: 36415; 70450; 80053; 80143; 80179; 80306; 81003; 82077; 82550; 83690; 83735; 84443; 85025; 96372; 99285; A9270; J2060; Q3014; 81001; 87086

== ENCOUNTER 2024-03-05 18:38 | Emergency (ER) | payer MEDICAID ==
--- NOTE | 2024-03-05 19:04 | ED Physician Documentation ---
PD HPI MHE - Stated complaint Stated Complaint: MHE - History obtained from History obtained from: Patient - History of Present Illness Primary symptom: Suicidal ideation - Additional information Additional information: 23-year-old male who reports a past medical history of bipolar disorder, multiple personality disorder and possible schizophrenia presents with suicidal thoughts. He has a planned and has thought about taking bleach to kill himself. He did not follow through with any of his plans but continues to feel suical and feels though he needs inpatient mental health treatment. He states he has been inpatient numerous times in the past And a would voluntarily go to inpatient mental health treatment. He does not want to go to [facility] however. Patient denies any other concerns today. He states he does smoke weed, occasionally drinks alcohol though none today, denies any other drug use. He took some Ativan for anxiety earlier but is otherwise not on any medication at this time. Review of Systems Psychiatric: reports: Depressed, Suicidal (All other systems reviewed and are negative except as noted in HPI.) PD PAST MEDICAL HISTORY - Past Medical History Past Medical History: Yes Cardiovascular: Other Respiratory: None Neuro: None Endocrine/Autoimmune: None GI: None : None HEENT: None Psych: Depression, Anxiety, Other Derm: None - Past Surgical History Past Surgical History: No - Present Medications Home Medications: Ambulatory Orders Medication Instructions Recorded Confirmed Alprazolam [Xanax] 0.25 mg PO Q6H PRN #20 tablet 10/25/23 Benztropine [Cogentin] 1 mg PO BID 10/25/23 10/25/23 Buspirone HCl 15 mg PO BID 10/25/23 10/25/23 Quetiapine Fumarate [Seroquel] 300 mg PO BID 10/25/23 10/25/23 traZODone [Desyrel] 50 - 100 mg PO HS PRN 10/25/23 10/25/23 - Allergies Allergies/Adverse Reactions: Allergies Allergy/AdvReac Type Severity Reaction Status Date / Time No Known Drug Allergies Allergy Verified 02/04/24 12:09 - Social History Does the pt smoke?: No Smoking Status: Former smoker Does the pt drink ETOH?: Yes Does the pt have substance abuse?: Yes - Immunizations Immunizations are current?: Yes PD ED PE NORMAL - Vitals Vital signs reviewed: Yes - General General: Alert and oriented X 3, No acute distress, Well developed/nourished - HEENT HEENT: Atraumatic, Moist mucous membranes - Neck Neck: Supple, no meningeal sign, No JVD - Cardiac Cardiac: RRR, No murmur - Respiratory Respiratory: No respiratory distress, Clear bilaterally - Abdomen Abdomen: Normal bowel sounds, Soft, Non tender, Non distended - Back Back: No CVA TTP, No spinal TTP - Derm Derm: Normal color, Warm and dry, No rash - Neuro Neuro: Alert and oriented X 3 Eye Opening: Spontaneous Motor: Obeys Commands Verbal: Oriented GCS Score: 15 - Psych Psych: Normal mood, Normal affect Results - Vitals Vitals: Oxygen O2 Source Room air PD Medical Decision Making - ED course Complexity details: reviewed results, re-evaluated patient, considered differential, d/w patient ED course: 23-year-old male who reports a history of multiple personality disorder, schizophrenia, bipolar presents with suicidal thoughts. He has thought about consuming bleach but has not attempted this. He is requesting voluntary inpatient mental health treatment. We will obtain routine screening labs and COVID test and consult telemetry psych. Patient will remain on suicide precautions. Departure - Departure Clinical Impression: Mental health disorder Condition: Good
[2024-03-05 19:15] LABS: BASOPHILS % (AUTO) 0.4 %; EOSINOPHILS # (AUTO) 0.1 10^3/uL (0.0-0.7); EOSINOPHILS % (AUTO) 1.5 %; HCT - HEMATOCRIT 45.6 % (42.0-52.0); HGB - HEMOGLOBIN 15.5 g/dL (14.0-18.0); LYMPHOCYTES # (AUTO) 1.8 10^3/uL (1.5-3.5); LYMPHOCYTES % (AUTO) 19.2 %; MEAN CORPUSCULAR HEMOGLOBIN 29.2 pg (27.0-31.0); MEAN CORPUSCULAR VOLUME 85.9 fL (80.0-94.0); MEAN PLATELET VOLUME 9.1 fL (7.4-11.4); MONOCYTES # (AUTO) 0.4 10^3/uL (0.0-1.0); MONOCYTES % (AUTO) 4.3 %; NEUTROPHILS # (AUTO) 7.1 10^3/uL (1.5-6.6); NEUTROPHILS % (AUTO) 74.4 %; PLT - PLATELET COUNT 259 10^3/uL (130-450); RED BLOOD COUNT 5.31 10^6/uL (4.70-6.10); RED CELL DISTRIBUTION WIDTH 11.9 % (12.0-15.0); WHITE BLOOD COUNT 9.6 x10^3/uL (4.8-10.8)
[2024-03-05 19:28] LABS: BILIRUBIN,URINE NEGATIVE (NEGATIVE); GLUCOSE, URINE (UA) NEGATIVE (NEGATIVE); KETONES,URINE (UA) NEGATIVE (NEGATIVE); LEUKOCYTE ESTERASE, URINE NEGATIVE (NEGATIVE); NITRITE,URINE NEGATIVE (NEGATIVE); OCCULT BLOOD,URINE NEGATIVE (NEGATIVE); PROTEIN,URINE NEGATIVE (NEGATIVE); UROBILINOGEN,URINE 0.2 (NORMAL) E.U./dL (NORMAL)
[2024-03-05 19:33] LABS: CLARITY,URINE V (CLEAR)
[2024-03-05 19:35] LABS: MAGNESIUM 1.7 mg/dL (1.7-2.3)
[2024-03-05 19:42] LABS: ACETAMINOPHEN 0.1 ug/mL; ALBUMIN 4.6 g/dL (3.2-5.5); ALKALINE PHOSPHATASE 63 IU/L (42-121); ALT ALANINE AMINOTRANSFERASE 14 IU/L (10-60); AST ASPARTATE AMINOTRANSFERASE 17 IU/L (10-42); BILIRUBIN,TOTAL 0.3 mg/dL (0.2-1.0); BUN - BLOOD UREA NITROGEN 10 mg/dL (6-20); CALCIUM 9.4 mg/dL (8.5-10.3); CARBON DIOXIDE - CO2 29 mmol/L (21-32); CHLORIDE 105 mmol/L (101-111); CK- CREATINE KINASE 189 IU/L (30-223); CREATININE 1.1 mg/dL (0.6-1.3); ETOH - ETHANOL < 10.0 mg/dL; GFR - MDRD 82 (>89); GLUCOSE 95 mg/dL (74-104); LIPASE < 10 U/L (11-82); POTASSIUM 4.1 mmol/L (3.5-4.5); SODIUM 139 mmol/L (135-145); TOTAL PROTEIN 6.9 g/dL (6.4-8.9)
[2024-03-05 19:43] LABS: AMPHETAMINE SCREEN,URINE NEGATIVE (NEGATIVE); BARBITURATE SCREEN,UR NEGATIVE (NEGATIVE); BENZODIAZEPINES SCREEN, URINE POSITIVE (NEGATIVE); BUPRENORPHINE SCREEN, URINE NEGATIVE (NEGATIVE); COCAINE SCREEN URINE NEGATIVE (NEGATIVE); METHADONE SCREEN, URINE NEGATIVE (NEGATIVE); METHAMPHETAMINES SCREEN, URINE NEGATIVE (NEGATIVE); OPIATE SCREEN, URINE NEGATIVE (NEGATIVE); OXYCODONE SCREEN, URINE NEGATIVE (NEGATIVE); THC CANNABINOID SCREEN, URINE POSITIVE (NEGATIVE); TRICYCLIC ANTIDEPRESSANT,URINE POSITIVE (NEGATIVE)
[2024-03-05 19:53] LABS: SALICYLATE < 1.5 mg/dL; THYROID STIMULATING HORMONE 0.46 uIU/mL (0.34-5.60)
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
[2024-03-06] MEDS: QUEtiapine 100 MG TABLET PO STA (00:32)
[2024-03-06] MEDS: busPIRone 5 MG TABLET PO STA (00:32)
[2024-03-06] MEDS: BENZTROPINE 2 MG TABLET PO STA (00:32)
[2024-03-06] MEDS ORDERED: QUEtiapine 100 MG TABLET ONE (00:39)
[2024-03-06 03:13] VITALS: BP 138/88; O2SAT 97
== END 2024-03-06 06:21 ==
LOC: ED 18:38
DX: F31.9 Bipolar disorder, unspecified (principal); R45.851 Suicidal ideations; F44.81 Dissociative identity disorder; Z79.899 Other long term (current) drug therapy
CPT/HCPCS: 36415; 80053; 80143; 80179; 80306; 81003; 82077; 82550; 83690; 83735; 84443; 85025; 87635; 99285; A9270; G0425; Q3014; 81001; 87086

== ENCOUNTER 2024-04-25 08:00 | Outpatient (CLI) | payer MEDICAID | END 2024-04-25 23:59 | disposition home or self-care (01) | LOC: LAB 08:00 | PROVIDERS: ATTEND Emergency Medicine | DX: R30.0 Dysuria (principal) | CPT/HCPCS: 87086 ==

== ENCOUNTER 2024-05-20 21:19 | Emergency (ER) | payer MEDICAID ==
--- NOTE | 2024-05-20 22:23 | ED Physician Documentation ---
PD HPI CHEST PAIN - Stated complaint Stated Complaint: HEART PALP - Chief complaint Chief Complaint: Cardiac - History obtained from History obtained from: Patient - History of Present Illness Timing - onset: Yesterday Timing - onset during: Rest Timing - duration: Minutes (20) Timing - details: Abrupt onset Pain level max: 5 Pain level now: 0 Quality: Pressure, Sharp Location: Left chest Radiation: No: Jaw, Neck, Back, Abdominal, Left upper extremity, Right upper extremity Improved by: Nothing Worsened by: No: Exertion, Inspiration, Eating, Movement, Palpation, Position Associated symptoms: Shortness of air, Palpitations. No: Diaphoresis, Nausea, Vomiting, Feeling faint / dizzy, General Weakness, Cough - Additional information Additional information: Patient is a 23-year-old male who states that he is scheduled to "undergo surgery" in June at [facility]. 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 He states that he is not on any medications. Has a history of schizophrenia. He states that the pain is in the left upper chest and he feels like his heart is racing. He states that has not happened today but happened 3-4 times yesterday. No fevers. No chills. No cough or congestion. No nausea or vomiting. No syncope or near syncope. Nothing makes it better or worse. Review of Systems Constitutional: denies: Fever, Chills GI: denies: Vomiting Skin: denies: Rash Musculoskeletal: denies: Neck pain, Back pain Neurologic: denies: Headache PD PAST MEDICAL HISTORY - Past Medical History Past Medical History: Yes Cardiovascular: Other Respiratory: None Neuro: None Endocrine/Autoimmune: None GI: None : None HEENT: None Psych: Depression, Anxiety, Other Musculoskeletal: None Derm: None Other Past Medical History: Multiple Personality Disorder; Tachycardia - Past Surgical History Past Surgical History: No - Present Medications Home Medications: Ambulatory Orders Medication Instructions Recorded Confirmed Benztropine [Cogentin] 2 mg PO BID 10/25/23 05/20/24 Buspirone HCl 15 mg PO BID 10/25/23 05/20/24 Quetiapine Fumarate [Seroquel] 300 mg PO BID 10/25/23 05/20/24 traZODone [Desyrel] 50 - 100 mg PO HS PRN 10/25/23 05/20/24 clonazePAM [Klonopin] 1 tab PO DAILY PRN 05/20/24 05/20/24 - Allergies Allergies/Adverse Reactions: Allergies Allergy/AdvReac Type Severity Reaction Status Date / Time No Known Drug Allergies Allergy Verified 05/20/24 21:39 - Social History Does the pt smoke?: No Smoking Status: Never smoker Does the pt drink ETOH?: Yes Does the pt have substance abuse?: Yes Substance Use and Type: Marijuana - Immunizations Immunizations are current?: Yes - POLST Patient has POLST: No PD ED PE NORMAL - Vitals Vital signs reviewed: Yes - General General: Alert and oriented X 3, No acute distress - HEENT HEENT: PERRL, Moist mucous membranes - Neck Neck: Supple, no meningeal sign - Cardiac Cardiac: RRR, Strong equal pulses - Respiratory Respiratory: No respiratory distress, Clear bilaterally - Abdomen Abdomen: Soft, Non tender, Non distended - Derm Derm: Warm and dry - Extremities Extremities: No edema - Neuro Neuro: Alert and oriented X 3 - Psych Psych: Normal mood, Normal affect Results - Vitals Vitals: Vital Signs - 24 hr 05/20/24 05/20/24 05/20/24 21:20 21:49 21:58 Temperature 36.8 C Heart Rate 125 H 103 H Respiratory 17 22 Rate Blood Pressure 136/88 H 142/87 H Blood Pressure 142/87 H [Right] O2 Saturation 98 99 05/20/24 23:00 Temperature Heart Rate 98 Respiratory 16 Rate Blood Pressure 128/87 H Blood Pressure [Right] O2 Saturation 96 Oxygen O2 Source Room air - EKG (time done) 2130 EKG releavant findings:: EKG personally interpreted by author of this note. Relevant findings are: Rate: Rate (enter#) (105) Rhythm: Sinus tachycardia Mcgregor: Normal Intervals: Normal ME QRS: Normal Ischemia: Normal ST segments - Labs Labs: Laboratory Tests 05/20/24 05/20/24 22:22 22:22 WBC 9.9 RBC 5.25 Hgb 15.1 Hct 44.7 MCV 85.1 MCH 28.8 MCHC 33.8 RDW 11.7 L Plt Count 283 MPV 9.2 Neut # (Auto) 6.8 H Lymph # (Auto) 2.2 [place] # (Auto) 0.5 Eos # (Auto) 0.3 Baso # (Auto) 0.1 Absolute Nucleated RBC 0.00 Nucleated RBC % 0.0 Sodium 141 Potassium 3.7 Chloride 104 Carbon Dioxide 31 Anion Gap 6.0 BUN 8 Creatinine 1.0 Estimated GFR (MDRD) 92 Glucose 92 Calcium 9.3 Total Bilirubin 0.3 AST 15 ALT 16 Alkaline Phosphatase 74 Troponin I High Sens < 2.3 L Total Protein 6.7 Albumin 4.5 Globulin 2.2 Albumin/Globulin Ratio 2.0 Lipase 38 - Rads (name of study) cxr Relevant Findings:: EMP independent interpretation of test PD Medical Decision Making - ED course Complexity details: reviewed results, re-evaluated patient, considered differential, d/w patient ED course: No acute findings on EKG, telemetry, laboratory testing or chest x-ray. No evidence of PE. Possible tachycardic episodes at home causing chest pain? We do not have his records available from [facility]. Recommend he contact his patch sander in the morning to let them know that he is having symptoms to see if they want to start him on medication. Hesitant to start him on any medication here without knowing his actual diagnosis. Patient is asymptomatic here. Patient is very well-appearing, nontoxic. Afebrile. No active chest pain. Patient counseled regarding signs and symptoms for which I believe and urgent re-evaluation would be necessary. Patient with good understanding of and agreement to plan and is comfortable going home at this time This document was made in part using voice recognition software. While efforts are made to proofread this document, sound alike and grammatical errors may occur. Departure - Departure Disposition: 01 Home, Self Care Clinical Impression: Palpitations Chest pain Qualifiers: Chest pain type: unspecified Qualified Code(s): R07.9 - Chest pain, unspecified Condition: Good Instructions: ED Chest Pain Atypical Unkn Cause, ED Palpitations Follow-Up: your,doctor tomorrow [Other] Comments: Your heart tests are normal today. Please follow-up with your patch sander tomorrow and let them know that you are having palpitations. Please return if you worsen. Forms: PCP List
[2024-05-20 22:26] LABS: BASOPHILS # (AUTO) 0.1 10^3/uL (0.0-0.1); BASOPHILS % (AUTO) 0.6 %; EOSINOPHILS # (AUTO) 0.3 10^3/uL (0.0-0.7); EOSINOPHILS % (AUTO) 3.4 %; HCT - HEMATOCRIT 44.7 % (42.0-52.0); HGB - HEMOGLOBIN 15.1 g/dL (14.0-18.0); LYMPHOCYTES # (AUTO) 2.2 10^3/uL (1.5-3.5); LYMPHOCYTES % (AUTO) 21.9 %; MEAN CORPUSCULAR HEMOGLOBIN 28.8 pg (27.0-31.0); MEAN CORPUSCULAR HGB CONC 33.8 g/dL (32.0-36.0); MEAN CORPUSCULAR VOLUME 85.1 fL (80.0-94.0); MEAN PLATELET VOLUME 9.2 fL (7.4-11.4); MONOCYTES # (AUTO) 0.5 10^3/uL (0.0-1.0); MONOCYTES % (AUTO) 4.7 %; NEUTROPHILS # (AUTO) 6.8 10^3/uL (1.5-6.6); NEUTROPHILS % (AUTO) 69.1 %; PLT - PLATELET COUNT 283 10^3/uL (130-450); RED BLOOD COUNT 5.25 10^6/uL (4.70-6.10); RED CELL DISTRIBUTION WIDTH 11.7 % (12.0-15.0); WHITE BLOOD COUNT 9.9 x10^3/uL (4.8-10.8)
[2024-05-20 22:45] LABS: ALBUMIN 4.5 g/dL (3.2-5.5); ALKALINE PHOSPHATASE 74 IU/L (42-121); ALT ALANINE AMINOTRANSFERASE 16 IU/L (10-60); AST ASPARTATE AMINOTRANSFERASE 15 IU/L (10-42); BILIRUBIN,TOTAL 0.3 mg/dL (0.2-1.0); BUN - BLOOD UREA NITROGEN 8 mg/dL (6-20); CALCIUM 9.3 mg/dL (8.5-10.3); CARBON DIOXIDE - CO2 31 mmol/L (21-32); CHLORIDE 104 mmol/L (101-111); GFR - MDRD 92 (>89); GLUCOSE 92 mg/dL (74-104); LIPASE 38 U/L (11-82); POTASSIUM 3.7 mmol/L (3.5-4.5); SODIUM 141 mmol/L (135-145); TOTAL PROTEIN 6.7 g/dL (6.4-8.9)
[2024-05-20 22:52] LABS: TROPONIN I HIGH SENSITIVITY < 2.3 ng/L (2.3-19.7)
--- NOTE | 2024-05-20 23:18 | XRAY Report ---
PROCEDURE: Chest 1V INDICATIONS: Chest Pain TECHNIQUE: One view of the chest was acquired. COMPARISON: None. FINDINGS: Surgical changes and devices: None. Lungs and pleura: No pleural effusions or pneumothorax. Lungs are clear. Mediastinum: Mediastinal contours appear normal. Heart size is normal. Bones and chest wall: No suspicious bony lesions. Overlying soft tissues appear unremarkable. IMPRESSION: No acute cardiopulmonary process. Reviewed by: Genaro Chaney MD on 05/20/2024 11:17 PM PDT Approved by: Genaro Chaney MD on 05/20/2024 11:17 PM PDT Station ID: [id number]
[2024-05-20 23:19] VITALS: BP 127/87; O2SAT 98
== END 2024-05-20 23:15 | disposition home or self-care (01) ==
LOC: ED 21:19
DX: R07.9 Chest pain, unspecified (principal); R00.2 Palpitations; R06.02 Shortness of breath
CPT/HCPCS: 36415; 80053; 83690; 84484; 85025; 93005; 99283; 99284

== ENCOUNTER 2024-05-27 11:16 | Outpatient (CLI) | payer MEDICAID | END 2024-05-27 23:59 | disposition EMS.NT | LOC: EMS 11:16 | DX: Z03.89 Encounter for observation for other suspected diseases and conditions ruled out (principal) ==